=== PATIENT | female | born 1955 | race Caucasian/White ===

== ENCOUNTER 2019-05-27 07:15 | Emergency (ER) | payer OTHER ==
[~2019-05-27] VITALS: Ht 165.1 cm; Wt 73.3 kg
[~2019-05-27 07:15] MED LIST: ENAL1TAB5 PO; LOVA10TA PO; OXYC-307 PO
[2019-05-27 07:19] VITALS: BP 128/85
[2019-05-27] MEDS ORDERED: PROPARACAINE OPHTH 0.5%, 15ML ONE (07:38)
[2019-05-27] MEDS ORDERED: FLUORESCEIN OPHTHALMIC 1 MG STRIP ONE (07:38)
--- NOTE | 2019-05-27 07:40 | NUR ---
PT STARTED ON MED FOR RIGHT EYE CONJUNCTIVITIS YESTERDAY. TODAY RIGHT EYE PUFFY AND SWOLLEN
== END 2019-05-27 08:05 | disposition home or self-care (01) ==
LOC: ED 08:02
DX: H10.211 Acute toxic conjunctivitis, right eye (principal)
CPT/HCPCS: 99282